=== PATIENT | female | born 1945 | race Caucasian/White ===

== ENCOUNTER 2020-01-21 05:38 | Day surgery (SDC) | payer MEDICARE ==
[~2020-01-21] VITALS: Ht 157.5 cm; Wt 67.3 kg
[2020-01-21 06:05] LABS: HEMATOCRIT 44.3 % (36.0-48.0); HEMOGLOBIN 14.5 g/dL (12-16); MCH 29.8 pg (26.0-34.0); MCHC 32.7 g/dL (31.0-37.0); MCV 91.2 fL (80.0-100.0); MEAN PLATELET VOLUME 9.3 fL (7.4-10.4); RBC 4.86 10x6/uL (4.00-5.40); RDW 12.7 % (11.5-14.5); WBC 6.3 10x3/uL (4.8-10.8)
[2020-01-21] MEDS ORDERED: GLUCOSAMINE HC500 MG PO (06:36)
[2020-01-21] MEDS ORDERED: NORVASC5 MG PO (06:36)
[2020-01-21] MEDS ORDERED: OMEPRAZOLE20 M1 PO (06:37)
[2020-01-21 06:44] VITALS: BP 139/70; Ht 157.5 cm; Wt 67.3 kg
--- NOTE | 2020-01-21 10:19 | NUR ---
1007 IV DC'D. CATHETER TIP INTACT. PRESSURE HELD UNTIL BLEEDING CEASED AND BANDAID APPLIED. REVIEWED DISCHARGE INSTRUCTIONS WITH PT AND HER WHO BOTH VOICE UNDERSTANDING OF INSTRUCTIONS.
--- NOTE | 2020-01-22 18:25 | HP ---
PATIENT: LELO FRANCIS I MEDICAL RECORD: [id number] ACCOUNT: [id number] LOCATION:[facility] : 47 ADMISSION DATE: 01/21/20 PCP: CAMMIE TRAORE MD HISTORY AND PHYSICAL EXAMINATION CHIEF COMPLAINT: Polyps. HISTORY OF PRESENT ILLNESS: The patient has had upper tract polyps. This included a polyp in the pyloric channel, a polyp in the duodenal bulb and another polyp in the duodenal bulb. She is here for upper endoscopy with polypectomies. HOME MEDICATIONS: Please see the nursing list. ALLERGIES: CELEBREX. PAST MEDICAL AND SURGICAL HISTORY: Gastroesophageal reflux, hypertension. REVIEW OF SYSTEMS: Negative for diabetes or thyroid problems. PHYSICAL EXAMINATION: GENERAL: The patient does not appear acutely ill. She does not appear chronically ill. VITAL SIGNS: Reviewed. EARS: External ears appear normal. EYES: Extraocular movements are intact. NECK: Trachea is midline. CHEST: No intercostal retractions. PULMONARY: Nonlabored, no stridor. IMPRESSION: Duodenal polyps. PLAN: Upper endoscopy with polypectomies. TRANSINT:[id number] Voice Confirmation ID: [id number] DOCUMENT ID: [id number] CARRIE WONG MD at 1825 CC: MANOJ SALVADOR and CAMMIE TRAORE V [id number] DICTATION DATE: 01/21/2052 [employer]URING [employer] CONTROLLER: 01/21/[address] [facility] [place] [facility] 01/21/20 [id number] [place] [address]
--- NOTE | 2020-01-22 18:25 | OP ---
PATIENT NAME: LELO FRANCIS I MEDICAL RECORD: [id number] :47 LOCATION:[facility] ADMISSION DATE: SURGEON: CARRIE WONG MD DATE OF OPERATION: 01/21/2020 PREOPERATIVE DIAGNOSIS: History of duodenal polyps. POSTOPERATIVE DIAGNOSES: 1. History of duodenal polyps with residual polyp in the duodenal bulb laterally. 2. 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 3. Large hiatal hernia (Hill grade III). 4. Small polypoid regrowth at the junction of the second and third portion of the duodenum. PROCEDURE: 1. Esophagogastroduodenoscopy with duodenal antral biopsies to rule out Helicobacter pylori as well as distal esophageal biopsies to rule out Johnson's esophagus. 2. Argon plasma coagulation therapy to the residual polyp within the duodenal bulb as well as the scar at the prior polypectomy site where there had been some regrowth. SURGEON: Carrie Wong MD CRUST SORTER: None. BLOOD LOSS: Minimal. ANESTHESIA: IV sedation. COMPLICATIONS: None. The risks, possible complications and alternatives to the procedure were explained to the patient. She elects to proceed. ENDOSCOPIC COURSE: The patient was conveyed to endoscopy suite electively on 01/21/2020. IV sedation was induced by the anesthesia staff. A bite block was inserted. A gastroscope was inserted into the mouth. It was advanced easily into the hypopharynx. The esophagus was easily intubated. I noted two inlet patches. I advanced the endoscope. The stomach was easily intubated as was the duodenum. Upon withdrawal, cold endoscopic biopsies were obtained on the lateral wall of the duodenum. There was also a posterior pyloric channel polyp, which I included in the specimen. We then withdrew into the antrum. Cold antral biopsies were obtained to rule out H. pylori. I then withdrew into the distal esophagus and distal esophageal biopsies were obtained to rule out Johnson's esophagus. I then readvanced the endoscope into the duodenum. At the junction of the second and third portions of the duodenum at the prior polypectomy site, there had been a tiny polypoid regrowth, maybe 2-mm. This area was treated with the argon plasma chemistry department chair utilizing the esophageal setting in the forced mode. I then withdrew into the duodenal bulb. I irrigated and was able to visualize the polyp and the polyp was ablated utilizing the argon plasma chemistry department chair with the esophageal setting in the forced mode. OPERATIVE REPORT [id number] LELO FRANCIS I The endoscope was then withdrawn under direct vision. I will see the patient in my office in 2-3 weeks. I will plan for her next surveillance upper endoscopy to take place in 3 years. TRANSINT:[id number] Voice Confirmation ID: [id number] DOCUMENT ID: [id number] CARRIE WONG MD at 1825 CC: MANOJ SALVADOR and CAMMIE TRAORE V [id number] DICTATION DATE: 01/21/20949 WATER QUALITY TECHNICIAN: 01/21/20 1256 [facility] 01/21/20 [facility] [address] [place] [address]
== END 2020-01-21 10:25 | disposition home or self-care (01) ==
LOC: D.OPS 05:38
PROVIDERS: Anesthesiology; ATTEND Surgery
DX: Z86.010 Personal history of colon polyps (principal); K44.9 Diaphragmatic hernia without obstruction or gangrene; K21.9 Gastro-esophageal reflux disease without esophagitis; I10 Essential (primary) hypertension; K31.7 Polyp of stomach and duodenum